=== PATIENT | female | born 1940 | race Caucasian/White ===

== ENCOUNTER 2018-12-02 13:24 | Inpatient (IN) | payer OTHER ==
[~2018-12-02] VITALS: Ht 165.1 cm; Wt 41.8 kg
[2018-12-02 13:25] VITALS: BP 135/73
[2018-12-02] MEDS ORDERED: TYLENOL325 MG PO (13:49)
[2018-12-02 14:37] LABS: ABSOLUTE NEUTROPHILS 7.3 thou/uL (1.4-8.2); BASOPHILS 0.2 % (0.0-2.0); HEMATOCRIT 41.7 % (37.0-47.0); HEMOGLOBIN 14.2 gm/dL (12.0-15.0); LYMPHOCYTES 7.3 % (24.0-44.0); MCH 29.9 pg (26.0-34.0); MCHC 34.1 g/dL (28.0-37.0); MCV 87.7 fL (80.0-100.0); MONOCYTES 9.9 % (1.0-8.0); PLATELET COUNT 403 thou/uL (150-400); POLYS 82.6 % (36.0-66.0); RBC 4.75 mil/uL (4.20-5.00); RDW 12.9 % (10.5-14.5); WBC 8.9 thou/uL (4.0-11.0)
[2018-12-02 14:40] LABS: ANION GAP 13 mmol/L (7-16); BUN 16 mg/dL (7-18); CALCIUM 9.8 mg/dL (8.5-10.1); CHLORIDE 99 mmol/L (98-107); CO2 28 mmol/L (21-32); CREATININE 0.7 mg/dL (0.6-1.0); GLUCOSE 135 mg/dL (74-106); POTASSIUM 3.8 mmol/L (3.5-5.1); SODIUM 140 mmol/L (136-145)
[2018-12-02 14:50] LABS: ALBUMIN 3.3 g/dL (3.4-5.0); MAGNESIUM 1.9 mg/dL (1.8-2.4); SGOT 21 U/L (15-37); SGPT 18 U/L (30-65); TOTAL BILIRUBIN 0.8 mg/dL (<0.1-1.0); TOTAL PROTEIN 7.9 g/dL (6.4-8.2); TROPONIN-I <0.06 ng/mL (<0.06)
[2018-12-02] MEDS ORDERED: FLOVENT DISKU250 MCG INH (16:20)
[2018-12-02] MEDS ORDERED: MILK OF MA400 MG/5 M PO (16:21)
[2018-12-02] MEDS ORDERED: VITAMIN D2000 UNIT PO (16:22)
[2018-12-02] MEDS ORDERED: SENNA8.6 MG PO (16:22)
[2018-12-02] MEDS ORDERED: MACRODANTIN100 MG PO (16:22)
[2018-12-02] MEDS ORDERED: ZOLOFT25 MG PO (16:23)
[2018-12-02 17:17] VITALS: BP 130/44
[2018-12-02 17:33] VITALS: BP 114/40
--- NOTE | 2018-12-02 19:40 | NUR ---
PATIENT ADMITTED TO ROOM AT THIS TIME. FAMILY HERE WITH HER. SHE IS QUITE SLEEPY AND WILL HALF AWAKE TO EAT DINNER. NEEDS TO BE FED. INCONT ON BOWEL AND BLADDER. KEPT CLEAN AND DRY. DISCUSSED PLAN OF CARE WITH FAMILY.
[2018-12-02 23:30] VITALS: BP 116/56
[2018-12-03 03:45] VITALS: BP 110/61
[2018-12-03 05:35] LABS: MCH 29.6 pg (26.0-34.0); MCHC 33.4 g/dL (28.0-37.0); MCV 88.7 fL (80.0-100.0); RBC 4.4 mil/uL (4.20-5.00); RDW 13.1 % (10.5-14.5); WBC 7.6 thou/uL (4.0-11.0)
[2018-12-03 05:58] LABS: CALCIUM 9.4 mg/dL (8.5-10.1); CREATININE 0.6 mg/dL (0.6-1.0); POTASSIUM 3.6 mmol/L (3.5-5.1)
--- NOTE | 2018-12-03 05:59 | NUR ---
ASSUMED CARE OF PT AT 1900HRS. PT WAS DROWSY ENTIRE SHIFT BUT WAS AROUSEABLE. PT WAS UNABLE TO COMMUNICATE OR FOLLOW COMMANDS. PT HAS STABLE VITAL SIGNS. PT SLEPT ENTIRE SHIFT. PT ON 2L O2 VIA NC IN FACILITY. WILL CONTINUE TO MONITOR.
[2018-12-03 07:26] VITALS: BP 128/63
--- NOTE | 2018-12-03 08:34 | EKG ---
[address] [place] [place] [address] ELECTROCARDIOGRAM REPORT Name: DELBERT RESENDIZ Room #: 357-P ADM IN M.R.#: [id number] Admission: 12/02/18 Attend Phys: Oz Euceda MD Discharge: Date of : 42 Report #: [id number] THIS REPORT FOR: //name// [facility] ED Test Date: 2018-12-02 Test Time: 14:00:52 Pat Name: DELBERT RESENDIZ Department: Room: 357 Gender: F Metallographer: LINA : 1940 Requested By: Art Buckley Order Number: [id number] MD: Kadeem Medina Measurements Intervals [place] Rate: 105 P: 82 [place]: 106 QRS: 80 QRSD: 78 T: -85 QT: 309 QTc: 409 Interpretive Statements Sinus tachycardia Probable left atrial enlargement Anteroseptal infarct, old No previous ECG available for comparison Electronically Signed On 12-03-2018 8:34:26 CDT by Kadeem Medina [email or web address] <ELECTRONICALLY SIGNED> By: Kadeem Medina MD 12/03/18 0834 1400 1400 Kadeem Medina MD /[place]
--- NOTE | 2018-12-03 10:14 | H ---
[facility] [place] [address] HISTORY AND PHYSICAL Name: DELBERT RESENDIZ Room #: 357-P ADM IN ..#: [id number] Admission: 12/02/18 Attend Phys: Oz Euceda MD Discharge: Date of : 42 Report #: [id number] THIS REPORT FOR: //name// CC: Oz Euceda DATE OF SERVICE: 12/02/2018 CHIEF COMPLAINT: Shortness of breath. HISTORY OF PRESENT ILLNESS: The patient is a 78-year-old female resident of [facility] who was sent to the Emergency Room with shortness of breath. The staff called this morning stating that she was desatting into the 80s on her normal 2 liters nasal cannula oxygen. They said she was more confused beyond her baseline and very weak appearing. There were no reports of fever, but they did report some "wet cough." PAST MEDICAL HISTORY: COPD, O2 dependent, history of recurrent UTI, depression. She has had a left radial fracture, mild dementia of Alzheimer type. PAST SURGICAL HISTORY: Unknown. FAMILY HISTORY: Unknown. SOCIAL HISTORY: A 27-skio-ztag history of smoking. She is . She [place] living [place] the [place]. ALLERGIES: None. MEDICATIONS: Tylenol, vitamins, Zoloft, Macrodantin. REVIEW OF SYSTEMS: She complains of being hungry. She denies shortness of breath, chest pain, nausea, vomiting or joint pain. OBJECTIVE: VITAL SIGNS: Temperature 36.9, pulse 106, respirations 23, blood pressure 130/44, O2 sat 94% on 2-3 liters nasal cannula. GENERAL: She is an elderly female, looks chronically ill. She is awake and alert. HEAD NECK: Unremarkable. LUNGS: Distant breath sounds. Some mild wheezing, low air movement. HEART: Tachycardic, regular. ABDOMEN: Soft, normoactive bowel sounds. No rebound or guarding. EXTREMITIES: No cyanosis, clubbing or edema. NEUROLOGIC: She moves all extremities equally. She recognizes her family. She is not clear of the date, time or situation. [facility] [address] [place] [address] HISTORY AND PHYSICAL Name: DELBERT RESENDIZ Room #: 357-P [facility] IN [facility].#: [id number] Admission: 12/02/18 Attend Phys: Oz Euceda MD Discharge: Date of : 42 Report #: [id number] LABORATORY DATA: CBC and chemistry were unremarkable. Chest x-ray was clear. EKG revealed sinus tachycardia. ASSESSMENT: 1. Chronic obstructive pulmonary disease exacerbation. 2. Metabolic encephalopathy due to the above. 3. Mild senile dementia of Alzheimer's type. 4. Mild protein-calorie malnutrition, albumin 3.3. PLAN: She is admitted to a telemetry monitoring due to the baseline tachycardia and COPD exacerbation. Treatments will include steroids, antibiotics, mucolytics and nebulized treatments. A urinalysis will be obtained due to her history of UTI, although her white count is normal and no report of fever. Empiric antibiotics have been ordered along with Lovenox DVT prophylaxis. I have spoken to her family at the bedside regarding her care plan and they have requested full code status. <ELECTRONICALLY SIGNED> By: Oz Euceda MD 12/03/18 1014 1741 1756 Oz Euceda MD /nt
[2018-12-03 11:20] VITALS: BP 111/40
--- NOTE | 2018-12-03 15:00 | NUR ---
DISCHARGE PLANNING. PATIENT ADMITTED FROM [facility] UNIT. ANTICIPATED PLAN OF DISCHARGE IS FOR PATIENT TO RETURN TO [place] ONCE PATIENT IS MEDICALLY READY. CLINICAL UPDATES FAXED TO JEANNINE SAM ADMISSIONS LIAISON. UNIT SW AWARE. FOLLOWING TO ASSIST WITH DISCHARGE NEEDS.
--- NOTE | 2018-12-03 15:12 | NUR ---
INITIAL ASSESSMENT: Received consult. SW reviewed chart and spoke with nursing. Pt was admitted from [facility] due to exacerbation of COPD. Pt with hx of dementia. HARJINDER left voice message for pt's granddtrMerna ([phone]) to provide update and confirm discharge plan. product planner to fax info to [place] for review. HARJINDER is following to assist as needed with discharge planning.
[2018-12-03 16:19] VITALS: BP 103/56
[2018-12-03 20:00] VITALS: BP 109/52
[2018-12-04 03:39] VITALS: BP 115/53
[2018-12-04 06:01] LABS: CALCIUM 9.7 mg/dL (8.5-10.1); CREATININE 0.8 mg/dL (0.6-1.0); POTASSIUM 4.3 mmol/L (3.5-5.1)
[2018-12-04 06:07] LABS: HEMATOCRIT 37.9 % (37.0-47.0); HEMOGLOBIN 12.6 gm/dL (12.0-15.0); MCH 29.4 pg (26.0-34.0); MCHC 33.2 g/dL (28.0-37.0); MCV 88.5 fL (80.0-100.0); RBC 4.28 mil/uL (4.20-5.00); RDW 13.4 % (10.5-14.5); WBC 11.8 thou/uL (4.0-11.0)
--- NOTE | 2018-12-04 08:30 | NUR ---
pt alert a 1 to 2 very confused at times and very nasty and mean up with max assist gb and walker. slept most of shift vss continue poc.
[2018-12-04 08:38] VITALS: BP 132/67
--- NOTE | 2018-12-04 10:08 | NUR ---
PT'S IV INFILTRATED AND PT WILL NOT LET ANYONE STICK HER WITH A NEEDLE. CONTACT DR. SALDIVAR AND DARINEL ARTIS FOR NO IV ACCESS AND MED CHANGED TO PO. WILL CONTINUE TO ASSESS.
[2018-12-04 10:48] VITALS: BP 127/55
[2018-12-04 15:24] VITALS: BP 122/41
--- NOTE | 2018-12-04 16:41 | NUR ---
HARJINDER reviewed chart and spoke with nursing and attending physician. Pt is progressing towards goals for discharge. Pt may be ready for discharge back to [facility] over the weekend. Pt will return using her skilled benefit. maintenance planner updated and confirmed with Jeannine. HARJINDER spoke with pt's granddtr, via phone to provide update and notify of anticipated discharge. Pt's granddtr is agreeable with plan. Final discharge orders will need to be faxed to the facility when available. [facility] will need to be contacted to coordinate pt's discharge. HARJINDER is available to assist should needs arise. JEANNINE--
[2018-12-04 19:03] VITALS: BP 140/82
--- NOTE | 2018-12-04 23:50 | NUR ---
Orderes received to change patient status to Med-surg. Room assignment 463. Report called to Serina PARKER. ARIEL Bauman left message on voicemain to notify of transfer.
[2018-12-05 00:08] VITALS: BP 145/60
--- NOTE | 2018-12-05 05:00 | NUR ---
Pt. rested quietly during the night when checked on during frequent rounds. She offers no complaints. Bed alarm is on.
[2018-12-05] MEDS ORDERED: MUCINEX600 MG PO (07:51)
[2018-12-05] MEDS ORDERED: CEFDINIR300 MG PO (07:51)
[2018-12-05] MEDS ORDERED: IPRAT-ALBUT 0.5-3 ML INH (07:51)
[2018-12-05] MEDS ORDERED: PREDNISONE 20 M20 M1 PO (07:52)
[2018-12-05 08:00] VITALS: BP 128/59
--- NOTE | 2018-12-05 11:53 | NUR ---
PT DISCHARGING TODAY TO [facility] FAXED DC ORDERS/SUMMARY TO FACILITY SPOKE WITH ADMISSIONS RECEIVED CONFIRMATION AND THEY DO NOT HAVE TRANSPORTATON THIS WEEKEND DUE TO THE HOLIDAY SO DCP ARRANGED TRANSPORTATION THROUGH [facility] TRIP #[id number] AND THEY WILL TRANSPORT PT BY WC VAN 4W TO [facility] AND [facility] WILL RETURN BACK TO UNIT. NOTIFIED PT'S FAMILY (KASEY) OF DC AND TIME OF TRANSPORT. UNIT NOTIFIED AND CHART COPY PER US. RN TO CALL REPORT TO [phone].
--- NOTE | 2018-12-05 16:05 | NUR ---
PT DISCHARGED TO [place], PT A&O TO SELF, VSS, NO SIGNS OF DISTRESS, PATIENT REMOVED IV LAST NIGHT. ALL BELONGINGS AND CHART COPY SENT WITH PATIENT.
--- NOTE | 2018-12-10 08:44 | D ---
[facility] [place] [address] DISCHARGE SUMMARY Name: DELBERT RESENDIZ Room #: 463-P [facility] IN [facility].#: [id number] Admission: 12/02/18 Attend Phys: Oz Euceda MD Discharge: 12/05/18 Date of : 42 Report #: [id number] THIS REPORT FOR: //name// CC: Oz Euceda FINAL DIAGNOSES: 1. Chronic obstructive pulmonary disease exacerbation. 2. Senile dementia of Alzheimer's type. HOSPITAL COURSE: The patient was admitted from the assisted through the ER with shortness of breath, some mild desaturations and confusion. She was diagnosed and treated for COPD exacerbation with nebulized treatments, inhaled steroids, IV antibiotics, and IV steroids. Her usual medications from home were continued. She received Lovenox, DVT prophylaxis with supportive care. Her situation improved. She was titrated back to her 2 liters nasal cannula at baseline and her cough and congestion cleared. She participated to the best of her ability of physical and occupational therapy. Her IV was lost and she declined to have further stick, so antibiotics and steroids were switched to an oral route. For the last 24 hours of her hospital stay, she was on her baseline oxygen with no significant cough or wheezing and afebrile. PHYSICAL EXAMINATION: GENERAL: On the day of discharge, she was awake and alert, resting in bed, pleasantly confused, not oriented to situation or place. VITAL SIGNS: Stable. LUNGS: Clear with no wheezing. HEART: Had regular sounds. ABDOMEN: Soft, normoactive bowel sounds. EXTREMITIES: Showed no edema. DISPOSITION: She is being transferred back to [facility] with regular diet and activity as tolerated. Oxygen 2 liters. PT, OT and ST for cognition treatment. She will continue usual home medications plus nebulized treatments q.i.d., prednisone taper for 15 days and Omnicef for 5 days. I will follow her stay there. <ELECTRONICALLY SIGNED> By: Agustin Valera MD 12/10/18 0844 0756 1047 Oz Euceda MD /nt
== END 2018-12-05 14:30 | DRG 190 ==
LOC: ER 13:24 → EROBS 16:08 → 3W 16:08 → 4W 12-05 00:07
PROVIDERS: Emergency Medicine; ADMIT Internal Medicine Geriatric Medicine
DX: J44.1 Chronic obstructive pulmonary disease with (acute) exacerbation (principal); G93.41 Metabolic encephalopathy; E44.1 Mild protein-calorie malnutrition; Z68.1 Body mass index [BMI] 19.9 or less, adult; G30.1 Alzheimer's disease with late onset; F02.80 Dementia in other diseases classified elsewhere, unspecified severity, without behavioral disturbance, psychotic disturbance, mood disturbance, and anxiety; F32.9 Major depressive disorder, single episode, unspecified; K59.00 Constipation, unspecified; Z99.81 Dependence on supplemental oxygen; Z87.81 Personal history of (healed) traumatic fracture; Z79.899 Other long term (current) drug therapy
CPT/HCPCS: 10879

== ENCOUNTER 2019-01-12 10:21 | Emergency (ER) | payer OTHER ==
[~2019-01-12] VITALS: Ht 162.6 cm; Wt 44.0 kg
[~2019-01-12 10:21] MED LIST: CEFDINIR300 MG PO; FLOVENT DISKU250 MCG INH; IPRAT-ALBUT 0.5-3 ML INH; MACRODANTIN100 MG PO; MILK OF MA400 MG/5 M PO; MUCINEX600 MG PO; PREDNISONE 20 M20 M1 PO; SENNA8.6 MG PO; TYLENOL325 MG PO; VITAMIN D2000 UNIT PO; ZOLOFT25 MG PO
[2019-01-12 11:12] LABS: URINE BLOOD 3+ (Negative); URINE CLARITY CLEAR; URINE COLOR YELLOW; URINE GLUCOSE-RANDOM* NEGATIVE (Negative); URINE KETONES 1+ (Negative); URINE PROTEIN (DIPSTICK) 1+ (Negative); URINE SPECIFIC GRAVITY >= 1.030 (1.005-1.035)
[2019-01-12 11:15] LABS: URINE LEUKOCYTES-REFLEX 1+ (Negative); URINE NITRITE-REFLEX POSITIVE (Negative)
[2019-01-12 11:20] LABS: ICTOTEST (BILI CONFIRMATORY) Negative (Negative); URINE BILIRUBIN NEGATIVE (Negative)
[2019-01-12 11:33] LABS: CASTS None Seen /LPF (None Seen); MUCUS 4-6 Moderate strn/LPF (None Seen); SQUAMOUS >10 Many /LPF (0-3)
[2019-01-12 11:35] LABS: BACTERIA-REFLEX >30 Many /HPF (None Seen); CRYSTALS None Seen /LPF (None Seen); URINE RBC 3-10 Few /HPF (0-2); URINE WBC-REFLEX >25 Many /HPF (0-5)
[2019-01-12 11:35] LABS: HEMATOCRIT 43.8 % (37.0-47.0); HEMOGLOBIN 14.7 gm/dL (12.0-15.0); MCH 29.3 pg (26.0-34.0); MCHC 33.5 g/dL (28.0-37.0); MCV 87.4 fL (80.0-100.0); PLATELET COUNT 473 thou/uL (150-400); RBC 5.01 mil/uL (4.20-5.00); RDW 13.9 % (10.5-14.5); WBC 7.9 thou/uL (4.0-11.0)
[2019-01-12 11:38] LABS: CALCIUM 9.8 mg/dL (8.5-10.1); CREATININE 0.7 mg/dL (0.6-1.0); POTASSIUM 3.6 mmol/L (3.5-5.1)
[2019-01-12 11:44] LABS: ALBUMIN 3.1 g/dL (3.4-5.0); TOTAL BILIRUBIN 0.3 mg/dL (<0.1-1.0); TOTAL PROTEIN 7.2 g/dL (6.4-8.2)
[2019-01-12 12:10] LABS: ABSOLUTE NEUTROPHILS 6.4 thou/uL (1.4-8.2)
[2019-01-12 12:12] LABS: ANISOCYTOSIS SLIGHT
[2019-01-12] MEDS ORDERED: MACROBID 100 M100 M1 PO ×2 (14:33→16:07)
[2019-01-12 16:17] VITALS: BP 142/61
== END 2019-01-12 16:19 | disposition home or self-care (01) ==
LOC: ER 10:21
PROVIDERS: Physician Assistant
DX: K59.00 Constipation, unspecified (principal); N39.0 Urinary tract infection, site not specified; R10.30 Lower abdominal pain, unspecified; J44.9 Chronic obstructive pulmonary disease, unspecified; F32.9 Major depressive disorder, single episode, unspecified; Z87.440 Personal history of urinary (tract) infections

== ENCOUNTER 2019-03-01 13:46 | Inpatient (IN) | payer OTHER ==
[~2019-03-01] VITALS: Ht 172.7 cm; Wt 36.2 kg
[~2019-03-01 13:46] MED LIST changes: +MACROBID 100 M100 M1 PO
[2019-03-01 13:48] VITALS: BP 144/78
[2019-03-01 14:20] LABS: URINE BLOOD 3+ (Negative); URINE CLARITY CLOUDY; URINE COLOR YELLOW; URINE GLUCOSE-RANDOM* NEGATIVE (Negative); URINE KETONES TRACE (Negative); URINE PROTEIN (DIPSTICK) 2+ (Negative); URINE SPECIFIC GRAVITY >= 1.030 (1.005-1.035); URINE UROBILINOGEN 0.2 E.U./dl (0.2-1.0)
[2019-03-01 14:21] LABS: HEMATOCRIT 53.1 % (37.0-47.0); HEMOGLOBIN 16.8 gm/dL (12.0-15.0); MCHC 31.6 g/dL (28.0-37.0); MCV 88.4 fL (80.0-100.0); PLATELET COUNT 449 thou/uL (150-400); RDW 14.8 % (10.5-14.5); WBC 20.7 thou/uL (4.0-11.0)
[2019-03-01 14:33] LABS: CALCIUM 10.2 mg/dL (8.5-10.1); CREATININE 1.1 mg/dL (0.6-1.0); POTASSIUM 3.8 mmol/L (3.5-5.1)
[2019-03-01 14:38] LABS: URINE LEUKOCYTES-REFLEX 3+ (Negative); URINE NITRITE-REFLEX POSITIVE (Negative)
[2019-03-01 14:39] LABS: ICTOTEST (BILI CONFIRMATORY) Negative (Negative); URINE BILIRUBIN NEGATIVE (Negative)
[2019-03-01 14:47] LABS: ALBUMIN 3.9 g/dL (3.4-5.0); TOTAL BILIRUBIN 0.6 mg/dL (<0.1-1.0); TOTAL PROTEIN 8.4 g/dL (6.4-8.2)
[2019-03-01 14:57] LABS: BACTERIA-REFLEX >30 Many /HPF (None Seen); CASTS None Seen /LPF (None Seen); SQUAMOUS None Seen /LPF (0-3); URINE WBC-REFLEX >25 Many /HPF (0-5)
[2019-03-01 14:58] LABS: URINE RBC None Seen /HPF (0-2)
[2019-03-01 14:59] LABS: CALCIUM OXALATE 0-3 Few /LPF (None Seen)
[2019-03-01 15:10] LABS: MAGNESIUM 2.8 mg/dL (1.8-2.4); PLATELET ESTIMATE NORMAL; TROPONIN-I <0.06 ng/mL (<0.06)
[2019-03-01 15:15] LABS: AMP/METHAMP Negative (Negative); BARBITURATES Negative (Negative); BENZODIAZEPINES Negative (Negative); COCAINE Negative (Negative); METHADONE Negative (Negative); OPIATES Negative (Negative); PCP Negative (Negative)
[2019-03-01 18:59] VITALS: BP 112/46
--- NOTE | 2019-03-01 19:07 | NUR ---
ATTEMPTED TO CALL REPORT AT THIS TIME. NURSES CURRENTLY IN SHIFT CHANGE/REPORT AND REQUEST TO CALL BACK WHEN FINISHED
[2019-03-01 20:30] VITALS: BP 124/48
[2019-03-01 20:55] VITALS: BP 140/54
[2019-03-02 00:06] VITALS: BP 122/45
--- NOTE | 2019-03-02 00:53 | NUR ---
PT NEW ADMIT THROUGH EMERGENCY ROOM. ARRIVED ON UNIT AT ABOUT 2052. ADMISSION ASSESSMENT COMPLETE. PHYLICIA , ALSO DPANDRES, AT BEDSIDE. CALLED DR. CEE TO NOTIFY HIM PTS ADMISSION. PT AWAKE, DROWSY, AND CONFUSED. RESPONDS TO VERBAL AND TACTILE STIMULI. DENIES PAIN. NO SIGN OF DISCOMFORT NOTED. SKIN INTACT ,NOTED REDNESS ON THE COCCYX. BARRIER CREAM APPLIED. VITALS STABLE, NO FEVER. WILL CONTINUE TO MONITOR.
[2019-03-02 03:57] VITALS: BP 119/72
[2019-03-02 08:00] VITALS: BP 139/62
--- NOTE | 2019-03-02 08:02 | EKG ---
[facility] [address] [facility] [place] [address] ELECTROCARDIOGRAM REPORT Name: DELBERT RESENDIZ Room #: 217-P ADM IN M.R.#: [id number] Admission: 03/01/19 Attend Phys: Isaak Hunter MD Discharge: Date of : 42 Report #: [id number] THIS REPORT FOR: //name// [facility] ED Test Date: 2019-03-01 Test Time: 14:44:04 Pat Name: DELBERT RESENDIZ Department: Room: 217 Gender: F Billing Manager: VALERIE : 1940 Requested By: Elroy Sánchez Order Number: [id number] MD: Warren Warner Measurements Intervals [place] Rate: 122 P: 79 AL: 94 QRS: 76 QRSD: 101 T: -76 QT: 289 QTc: 412 Interpretive Statements Sinus tachycardia ST and T wave abnormality, diffuse leads Compared to ECG 12/02/2018 14:00:52 ST segment abnormality is more pronounced Electronically Signed On 03-02-2019 8:02:39 GOLD LEAF LAYER by Warren Warner [email or web address] <ELECTRONICALLY SIGNED> By: Warren Warner MD, [facility] 03/02/19 0802 1444 144 Warren Warner MD, [facility] /EPI
[2019-03-02 12:00] VITALS: BP 108/52
--- NOTE | 2019-03-02 14:21 | NUR ---
Nash admits from [facility] lt. She admits with AMS. Patient cannot tell casemgt were she is located. She looks at caser and does not answer questions. Left message with DPOA Merna Wade. [facility] requests comentency eval to invoke DPOA. DPOA paperwork notes need to [address] Valera of this matter. DPOA paperwork on chart. Plan return to [facility] once stable.
[2019-03-02 15:59] VITALS: BP 90/57
--- NOTE | 2019-03-02 16:32 | NUR ---
FAXED CLINICAL UPDATE TO [facility] SPOKE WITH KING IN ADM SHE RECEIVED UPDATE. DP TO FOLLOW.
[2019-03-02 21:16] VITALS: BP 120/52
[2019-03-03 04:30] VITALS: BP 133/52
--- NOTE | 2019-03-03 04:47 | NUR ---
PT ALERT AND ORIENTED TO SELF. MORE AWAKE WHEN AROUSED. RESPONDS WITH SHORT SENTENSES TO DIRECTIONS. BRIGHTER AFFECT THAN YESTERDAY. VITALS STABLE. PT APPEAR COMFORTABLE. NO DISTRESS NOTED. O2 SATS WNL, ON 1L CURRENTLY. DENIES PAIN. NO NAUSEA, OR VOMITING NOTED. WILL CONTINUE TO ASSESS MENTATION, ABX THERAPY AND ACTIVITY LEVELS. NO FURTHER ISSUE NOTED AT THIS TIME. MORTON CATHETER IN PLACE. WILL CONTINUE WITH PLAN OF CARE.
[2019-03-03 05:37] LABS: CREATININE 0.6 mg/dL (0.6-1.0); POTASSIUM 3.3 mmol/L (3.5-5.1)
[2019-03-03 08:00] VITALS: BP 128/67
--- NOTE | 2019-03-03 12:15 | NUR ---
Patient admits with AMS. Left message for DPOA to call casemgt. Updated [facility] with plan to return at [place].
[2019-03-03 12:33] VITALS: BP 111/44
[2019-03-03 12:46] VITALS: BP 122/61
[2019-03-03 16:00] VITALS: BP 142/63
--- NOTE | 2019-03-03 16:14 | NUR ---
spoke with DPOA who asked if patient appropriate for hospice. Reviewed hospice pilosophy and care at nursing facility. Sp with Jana in admissions at [place] who reports [facility] is their hospice agency in [place] that is used often. Updated GDTR her/patient can choose any agency and alerted [facility] is there often at [place]. Sp with Dr Valera who reports no hurry to initate hospice at this time. Cont hospice eval and conversation can be at [place]. Dr Valera reports possible dc Friday to [place] udated gdtr and facility of abovve.
[2019-03-03 20:06] VITALS: BP 132/50
--- NOTE | 2019-03-03 20:09 | NUR ---
ASSUMMED PT CARE AT APPROXIMATELY 0700. PT AWAKE AND ORIENTED X SELF. FREQUENT REORIENTATION PROVIDED. PT DENIES HAVING CHEST PAIN. PT DENIES HAVING SOB. PT DENIES HAVING ACUTE PAIN. NOTIFIED OF ELECTROLYTE IMBALANCES. IMPLEMENTED NEW ORDERS. NEW ORDERS IMPLEMENTED. NOTIFIED OF PT'S UNKNOWN LAST BM. NOTIFIED. EDUCATED CRUSHER SUPERVISOR NURSE OF NEW ORDERS. CRUSHER SUPERVISOR NURSE STATED UNDERSTANDING AND DENIED HAVING FURTHER QUESTIONS. Q2 TURNS. DIET CHANGE. ENCOURAGED PT TO EAT AND DRINK FLUIDS. PT COMFORTABLE IN BED. PT DENIES HAVING FURTHER CONCERNS AT THIS TIME.
[2019-03-04 00:36] VITALS: BP 137/92
[2019-03-04 04:57] LABS: CALCIUM 8.6 mg/dL (8.5-10.1); CREATININE 0.6 mg/dL (0.6-1.0); POTASSIUM 3.3 mmol/L (3.5-5.1)
[2019-03-04 05:07] LABS: ABSOLUTE NEUTROPHILS 10.4 thou/uL (1.4-8.2); BASOPHILS 0.6 % (0.0-2.0); EOSINOPHILS 1.9 % (0.0-3.0); HEMATOCRIT 44.3 % (37.0-47.0); LYMPHOCYTES 9.4 % (24.0-44.0); MCH 28.5 pg (26.0-34.0); MCHC 32.2 g/dL (28.0-37.0); MCV 88.4 fL (80.0-100.0); MONOCYTES 6.5 % (1.0-8.0); PLATELET COUNT 394 thou/uL (150-400); POLYS 81.6 % (36.0-66.0); RBC 5.01 mil/uL (4.20-5.00); RDW 14.2 % (10.5-14.5); WBC 12.7 thou/uL (4.0-11.0)
[2019-03-04 05:14] LABS: HEMOGLOBIN 14.3 gm/dL (12.0-15.0)
--- NOTE | 2019-03-04 05:43 | NUR ---
ASSUMED PT CARE AT 1900. VSS. PT AWAKE AND ORIENTED TO SELF ONLY, PT WAS STABLE FOR MOST OF THE NIGHT BUT DESATTED THIS AM TO 84% SO PT IS NOW ON 2L NC. SHE IS SATTING WELL NOW. STILL NO BM YET ALTHOUGH MIRALAX AND STOOL SOFTNER GIVEN YESTERDAY. NO COMPLAINTS OF PAIN OR DISCOMFORT, WILL CONTINUE TO MONITOR.
[2019-03-04 06:12] VITALS: BP 160/78
[2019-03-04 09:12] VITALS: BP 160/92
[2019-03-04 12:00] VITALS: BP 107/69
[2019-03-04 16:36] VITALS: BP 120/65
--- NOTE | 2019-03-04 17:58 | NUR ---
ASSUMED CARE FROM ALEKSANDAR RN @ 1430. PT ALERT AND ORIENTED TO SELF. VSS. APPETITE POOR. NO CARDIAC OR RESPIRATORY DISTRESS NOTED. FALL PRECAUTION IN PLACE. WILL CONTINUE TO MONITOR.
[2019-03-04 19:50] VITALS: BP 102/43
[2019-03-05] VITALS (8 sets, daily range): BP systolic 102–150; BP diastolic 60–75
--- NOTE | 2019-03-05 04:37 | NUR ---
ASSUMED PT CARE AT 1900. VSS. PT AWAKE AND ORIENTED TO SELF. NO COMPLAINTS THROUGH THE NIGHT. PT HAD A BM LAST NIGHT, PT IS STABLE, UNEVENTFUL NIGHT, WILL CONTINUE TO MONITOR
--- NOTE | 2019-03-05 10:22 | NUR ---
RECIEVED ORDERS FOR OT EVAL AND TREAT. PATIENT UNABLE TO PROVIDE PLOF, PER CHART REVIEW FROM [facility]TC AT [facility], NON-AMBULATORY. [facility]. PATIENT REFUSING ANY MOBILITY OR SELF CARES, MOANING IN PAIN AT ATTEMPT OF BED MOBILITY. BASELINE DEMENTIA. PATIENT TO D/C FROM ACUTE OT SERVICES, AT FUNCTIONAL BASELINE AND TOTAL ASSIST FOR SELF CARE AT BASELINE. SEE OT SCREEN.
--- NOTE | 2019-03-05 19:57 | NUR ---
ASSESSMENT CHARTED. PT ALERT AND ORIENTED. VS. TURNED AND REPOSITIONED Q 2 HOURS AND NEEDED. NEW ORDERS NOTED. WILL CONTINUE TO MONITOR.
[2019-03-06] VITALS: BP 148/68
[2019-03-06 04:14] VITALS: BP 131/54
[2019-03-06 06:06] LABS: CALCIUM 8.7 mg/dL (8.5-10.1); CREATININE 0.5 mg/dL (0.6-1.0); POTASSIUM 4.1 mmol/L (3.5-5.1)
--- NOTE | 2019-03-06 06:40 | NUR ---
PT CONFUSED THIS AM.PT PULLED HER IV OUT. UNSUCESSFUL ATTEMPTS OF STARTING IV X3. IV FLUIDS ON HOLD. IV NURSE WILL BE PAGED THIS AM.
[2019-03-06 07:30] VITALS: BP 148/63
--- NOTE | 2019-03-06 09:59 | NUR ---
P.T. EVAL AND TREAT ORDERS RECEIVED.Pt STATES LEAVE ME ALONE (TODAY) & WOULD NOT WORK WITH P.T. YESTERDAY EITHER. PER CHART, Pt LIVES AT LTC AT [facility], IS NON-AMBULATORY, [facility], AND O.T. HAS D/C'D Pt SHE IS AT HER FUNCTIONAL BASELINE. Pt HAS DEMENTIA, IS REFUSING ANY MOBILITY, AND APPEARS TO BE AT HER FUNCTIONAL BASELINE AND REQUIRES TOTAL ASSIST. NO SKILLED P.T. NEEDED AT THIS TIME. WILL D/C. NSG AWARE AND INFORMED.
[2019-03-06 16:17] VITALS: BP 121/59
--- NOTE | 2019-03-06 16:43 | NUR ---
PT CARE ASSUMED APPROX 0700. PT DENIES SOA AND PAIN. DOES MOAN DURING CARES BUT SEEMS COMFORTABLE AT REST. TURNING Q2HRS AND PRN. VSS. PT TOLERATING POC. APPETITE IS VERY POOR. PT EVEN REFUSES SUPPLEMENTS. DR WHITE AWARE. NO DISTRESS NOTED.
[2019-03-06 19:38] VITALS: BP 110/55
[2019-03-07 03:56] VITALS: BP 138/52
[2019-03-07 05:03] LABS: CALCIUM 9.3 mg/dL (8.5-10.1); CREATININE 0.5 mg/dL (0.6-1.0); POTASSIUM 4.1 mmol/L (3.5-5.1)
[2019-03-07 07:00] VITALS: BP 150/58
--- NOTE | 2019-03-07 07:32 | NUR ---
RECEIVED REPORT ON PT AROUND 2300 FOR TRANSFER OF CARE. PT HAD RESTFUL NIGHT BUT COMPLAINED ABOUT BEING REPOSITIONED.
[2019-03-07 16:30] VITALS: BP 150/75
--- NOTE | 2019-03-07 16:33 | NUR ---
PT CARE ASSUMED APPROX 0700. ASSESSMENT CHARTED. DENIES SOA AND PAIN. VSS. PT REFUSING ALMOST ALL CARES. EDUCATED BUT SIGNIFICANT COGNITIVE BARRIER PRESENT. TURNING PT Q2HRS AND PRN. TOLERATING POC AND CHANGES MADE TO POC THIS SHIFT. DR AWARE THAT PT REFUSES CARES AND MEDS AT TIMES. PT 02 WEANED TO RA. NO DISTRESS NOTED.
[2019-03-07 20:15] VITALS: BP 121/64
[2019-03-08 04:45] VITALS: BP 148/95
--- NOTE | 2019-03-08 04:52 | NUR ---
ASSUMED PT CARE AROUND 1900. ORIENTED TO SELF ONLY. PT SLEPT MOST OF THE NIGHT. RESP EVEN AND UNLABORED. Q2H TURN TO PREVENT SKIN BREAKDOWN. BARRER CREAM APPLIED TO BLANCHABLE REDNESS ON LEFT BUTTOCK. IVF INFUSING ORDERED. FALL PRECAUTIONS IN PLACE. PROGRESSING VERY SLOWLY TOWARD POC GOALS. WILL CONTINUE TO MONITOR FURTHER.
[2019-03-08 07:58] VITALS: BP 133/60
--- NOTE | 2019-03-08 13:55 | NUR ---
RECEIVED PT'S CARE AROUND 0730; PT. ON BED; AWAKE; DURING ASSESSMENT ALERT TO PERSON; WHEN ASKED IF HAS PAIN ST. "NO"; C/O PAIN WHEN TURING FROM SIDE TO SIDE OR DURING ASSESSMENT OF LEGS; DURING SHIFT CHANGE IV INFILTRATED; PARENTAL NUTRITION STOPPED; PER MISCELLANIUS ORDER NOT TO START NEW IV; PHYSICIAN NOTIFIED; NO NEW ORDERS; POOR APPETITE; REFUSED AM MEDICATION; D/C MORTON AROUND 1330; MONITORING; D/C ORDERS ON PLACE; WORKING ON D/C PAPERS; WILL CALL FOR REPORT;
--- NOTE | 2019-03-08 16:01 | NUR ---
PT DISCHARGING TODAY BACK TO [facility] FAXED DC ORDERS/SUMMARY TO FACILITY SPOKE WITH KING IN ADM SHE RECEIVED ORDERS. DP ARRANGED TRANSPORT THROUGH [facility] TRIP #[id number] BY STRETCHER VAN THEY WILL ROUSTABOUT HEAD PT BETWEEN [phone]. LEFT MSG WITH PT'S GRANDAUGHTER (KASEY) OF DC AND TIME OF TRANSPORT. UNIT NOTIFIED AND CHART COPY PER US. RN TO CALL REPORT TO [phone].
--- NOTE | 2019-03-08 19:37 | H ---
[facility] [place] [address] HISTORY AND PHYSICAL Name: DELBERT RESENDIZ Room #: 217-P ADM IN M.R.#: [id number] Admission: 03/01/19 Attend Phys: Isaak Hunter MD Discharge: Date of : 42 Report #: [id number] THIS REPORT FOR: //name// CC: Oz Hunter DATE OF SERVICE: 03/01/2019 HISTORY OF PRESENT ILLNESS: This is a 78-year-old female who had altered mental status with the patient who has a history of dementia and unable to give us any history whatsoever. She had axillary temperature of only 100.5, but certainly clearly change in mental status. PAST MEDICAL HISTORY: Noteworthy for Alzheimer's dementia with a history of depression and COPD. MEDICATIONS: List includes Flonase, nitrofurantoin, multiple vitamins, and sertraline. ALLERGIES: She has no known allergies. FAMILY HISTORY: Noncontributory. SOCIAL HISTORY: She lives at [facility]. REVIEW OF SYSTEMS: Not obtainable. PHYSICAL EXAMINATION: GENERAL: Shows her to be lying in bed. She had limited responds to me when I tried to talk with her. VITAL SIGNS: Stable. HEENT: Otherwise, negative. NECK: Showed supple without adenopathy. CHEST: Diminished. CARDIOVASCULAR: Showed a regular rate and rhythm. ABDOMEN: Nontender. GENITOURINARY: Georges catheter was noted. NEUROLOGIC: Showed her to be demented and poorly responsive at this time. LABORATORY PARAMETERS: Reviewed. Creatinine was 1.1. WBC of 20.7 with a hemoglobin of 16.8. Positive urinalysis for infection. ASSESSMENT AND PLAN: This is a 78-year-old female with underlying sepsis, probable urinary origin. We will plan IV antibiotics, fluid resuscitation and clinical management. However, at this point, overall, her care is palliative and I suspect ultimately terminal. Also note that she in my opinion is not able [facility] [address] [place] [address] HISTORY AND PHYSICAL Name: DELBERT RESENDIZ Room #: 217-P [facility] IN [facility]#: [id number] Admission: 03/01/19 Attend Phys: Isaak Hunter MD Discharge: Date of : 42 Report #: [id number] to manage her own affairs and any durable power of energy attorney that is available should be implemented. <ELECTRONICALLY SIGNED> By: Agustin Valera MD 03/08/19 1937 1200 1304 Agustin Valera MD /nt
[2019-03-08 20:10] VITALS: BP 148/72
--- NOTE | 2019-03-08 20:12 | NUR ---
RECEIVED REPORT FROM KELVIN BOB SHIFT RN.PATIENT WAS PICKED UP BY TRANSPORT AT 2012.VITALS TAKEN AND RECORDED.PAPERWORK GIVEN TO THE TRANSPORTER.
== END 2019-03-08 20:17 | DRG 640 ==
LOC: ER 13:46 → EROBS 15:51 → 2N 15:51
PROVIDERS: Emergency Medicine; Internal Medicine; ADMIT Internal Medicine
DX: E86.0 Dehydration (principal); G93.41 Metabolic encephalopathy; E44.0 Moderate protein-calorie malnutrition; N39.0 Urinary tract infection, site not specified; Z68.1 Body mass index [BMI] 19.9 or less, adult; E87.0 Hyperosmolality and hypernatremia; J44.9 Chronic obstructive pulmonary disease, unspecified; K59.00 Constipation, unspecified; G30.9 Alzheimer's disease, unspecified; F02.80 Dementia in other diseases classified elsewhere, unspecified severity, without behavioral disturbance, psychotic disturbance, mood disturbance, and anxiety; F32.9 Major depressive disorder, single episode, unspecified; Z51.5 Encounter for palliative care; Z79.899 Other long term (current) drug therapy; R62.7 Adult failure to thrive
CPT/HCPCS: 10081